=== PATIENT | female | born 1995 | race Hispanic/Latino ===

== ENCOUNTER 2020-08-26 17:07 | Emergency (ER) | payer SELFPAY ==
[2020-08-26] MEDS ORDERED: Ondansetron ODT 4 MG TAB ONE (18:15)
[2020-08-26] MEDS ORDERED: Dexamethasone 10 MG/ML VIAL ONE (18:15)
[2020-08-26] MEDS ORDERED: Acetaminophen 500 MG TAB ONE (18:15)
[2020-08-26] MEDS ORDERED: cefTRIAXone\\ROCEPHIN 1 GM VIAL ONE (18:15)
[2020-08-26] MEDS ORDERED: Ketorolac Tromethamine 30 MG/ML VIAL ONE (18:15)
== END 2020-08-26 21:06 | disposition home or self-care (01) ==
LOC: ERS 17:07
DX: J02.9 Acute pharyngitis, unspecified (principal); E86.0 Dehydration; Z20.822 Contact with and (suspected) exposure to COVID-19
CPT/HCPCS: 87081; 87430; 96365; 96375; J0696; J1100; J1885; Q0162

== ENCOUNTER 2021-03-22 23:23 | Emergency (ER) | payer SELFPAY ==
[2021-03-23 17:15] LABS: SARS-CoV-2 PCR by NAA Not Detected (NotDetected)
== END 2021-03-23 03:35 | disposition home or self-care (01) ==
LOC: ERS 23:23
DX: B34.9 Viral infection, unspecified (principal); Z20.822 Contact with and (suspected) exposure to COVID-19
CPT/HCPCS: 71045; U0003; U0005

== ENCOUNTER 2022-03-31 03:48 | Emergency (ER) | payer BC, SELFPAY ==
[2022-03-31] MEDS ORDERED: Diazepam 5 MG TAB ONE (03:59)
[2022-03-31 05:06] LABS: Bilirubin Negative (Negative); Blood, Urine Negative (Negative); Clarity Clear (Clear); Glucose, Urine (Dipstick) Normal (Negative); Ketone, Urine Negative (Negative); Leukocyte Negative Leu/uL (Negative); Nitrite Negative (Negative); Protein, Urine (Dipstick) Negative (Neg-Trace); Specific Gravity, Urine 1.005 (1.002-1.036); Urobilinogen Normal mg/dL (Less than 2)
[2022-03-31 05:07] LABS: Pregnancy Test - Urine (BHCG) Negative (Negative); Pregu Control Background? CLEAR/WHITE (CLR/WHITE); Pregu Control Bar Appear? YES (CONTROL BAR)
[2022-03-31 05:08] LABS: Specific Gravity 1.005 (1.002-1.036)
== END 2022-03-31 06:10 | disposition home or self-care (01) ==
LOC: ERS 03:48
DX: F41.9 Anxiety disorder, unspecified (principal)
CPT/HCPCS: 81003; 81025; 93005